=== PATIENT | male | born 1980 | race African-American/Black ===

== ENCOUNTER 2020-08-17 00:51 | Inpatient (IN) | payer OTHER ==
[~2020-08-17] VITALS: Ht 182.9 cm; Wt 121.8 kg
[2020-08-17] VITALS (9 sets, daily range): BP systolic 148–193; BP diastolic 106–130
[~2020-08-17 00:51] MED LIST: TRIAMCINOLONE A80 G2 TOP
[2020-08-17 01:31] LABS: ABSOLUTE NEUTROPHILS 2.8 thou/uL (1.4-8.2); BASOPHILS 2.1 % (0.0-2.0); EOSINOPHILS 2.1 % (0.0-3.0); HEMATOCRIT 45.9 % (42.0-52.0); HEMOGLOBIN 14.9 gm/dL (14.0-18.0); LYMPHOCYTES 26.5 % (24.0-44.0); MCH 28.7 pg (26.0-34.0); MCHC 32.3 g/dL (28.0-37.0); MCV 88.7 fL (80.0-100.0); MONOCYTES 12.8 % (1.0-8.0); PLATELET COUNT 164 thou/uL (150-400); POLYS 56.5 % (36.0-66.0); RBC 5.18 mil/uL (4.50-6.00); RDW 14.7 % (10.5-14.5); WBC 4.9 thou/uL (4.0-11.0)
[2020-08-17] MEDS ORDERED: NOHOMEMEDICATIONS (01:32)
[2020-08-17 01:33] LABS: CALCIUM 8.4 mg/dL (8.5-10.1); POTASSIUM 3.5 mmol/L (3.5-5.1)
[2020-08-17 01:33] LABS: URINE BILIRUBIN NEGATIVE (Negative); URINE BLOOD 1+ (Negative); URINE CLARITY CLEAR; URINE COLOR YELLOW; URINE GLUCOSE-RANDOM* NEGATIVE (Negative); URINE KETONES NEGATIVE (Negative); URINE LEUKOCYTES-REFLEX NEGATIVE (Negative); URINE NITRITE-REFLEX NEGATIVE (Negative); URINE PROTEIN (DIPSTICK) 1+ (Negative); URINE SPECIFIC GRAVITY 1.015 (1.005-1.035); URINE UROBILINOGEN 0.2 E.U./dl (0.2-1.0)
[2020-08-17 01:39] LABS: TOTAL BILIRUBIN 1.2 mg/dL (0.2-1.0); TOTAL PROTEIN 6.3 g/dL (6.4-8.2)
[2020-08-17 01:53] LABS: BACTERIA-REFLEX 1-9 Few /HPF (None Seen); CRYSTALS None Seen /LPF (None Seen); HYALINE CASTS 0-3 Few /LPF (None Seen); MUCUS None Seen strn/LPF (None Seen); SQUAMOUS 0-3 Few /LPF (0-3); TRANSITIONAL EPITHEL CELL 0-3 Few /LPF (None Seen); URINE RBC 1-2 Rare /HPF (NONE SEEN); URINE WBC-REFLEX 0-5 Rare /HPF (0-5)
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
[2020-08-17 07:44] LABS: APTT 25.6 Seconds (24.5-32.8); INR 1.14; PROTIME 12.4 Seconds (10.5-12.1)
[2020-08-17 07:49] LABS: CHOLESTEROL 113 mg/dL (<200); HDL CHOLESTEROL 37 mg/dL (>40); LDL CHOLESTEROL 63 mg/dL (<100); TC:HDL 3.1 Ratio (Not establshd); TRIGLYCERIDE 65 mg/dL (<150); VLDL 13 mg/dL (<40)
--- NOTE | 2020-08-17 09:17 | EKG ---
[place] [address] [facility] [place] [address] ELECTROCARDIOGRAM REPORT Name: RAMOS CASAS Room #: 212-P ADM IN M.R.#: [id number] Admission: 08/17/20 Attend Phys: Ron Blanc MD Discharge: Date of : 76 Report #: [id number] [facility] ED Test Date: 2020-08-17 Test Time: 02:47:33 Pat Name: RAMOS CASAS Department: Room: 212 Gender: M Hammerer Helper: zina solomon : 1980 Requested By: Wilton Abraham Order Number: [id number] MD: Sage Velez Measurements Intervals [place] Rate: 85 P: 46 AL: 216 QRS: 26 QRSD: 114 T: 33 QT: 414 QTc: 493 Interpretive Statements Sinus rhythm Prolonged AL interval Left atrial enlargement Abnormal R-wave progression, late transition Borderline prolonged QT interval No previous ECG available for comparison Electronically Signed On 08-17-2020 9:17:13 CDT by Sage Velez [email or web address] <ELECTRONICALLY SIGNED> By: Sage Velez MD, [facility] 08/17/20 0917 0247 0247 Sage Velez MD, FACC /EPI
--- NOTE | 2020-08-17 10:15 | 2DMMODE ---
[facility] [place] [address] 2 D/M-MODE ECHOCARDIOGRAM Name: RAMOS CASAS Room #: 212-P ADM IN M.R.#: [id number] Admission: 08/17/20 Attend Phys: Ron Blanc MD Discharge: Date of : 76 Report #: [id number] THIS REPORT FOR: cc: NO FAMILY PHYSICIAN or PCP NO FAMILY PHYSICIAN or PCP Carrillo Hooper MD [facility] ~ ADDENDUM APPROVED REPORT Study performed: 08/17/2020 08:58:15 EXAM: Comprehensive 2D, Doppler, and color-flow Echocardiogram Patient Location: Bedside Room #: 212 Status: routine BSA: 2.42 HR: 89 bpm BP: 173/120 mmHg Rhythm: Regular Other Information Study Quality: Good Indications Short of breath, elevated troponin, chest pain. 2D Dimensions RVDd: 52.66 mm IVSd: 14.87 (7-11mm) LVOT Diam: 23.34 (18-24mm) LVDd: 65.28 mm PWd: 14.83 (7-11mm) Ascending Ao: 39.34 (22-36mm) LVDs: 58.56 (25-40mm) Left Atrium: 71.12 (27-40mm) Aortic Root: 37.49 mm Volumes Left Atrial Volume (Systole) Single Plane 4CH: 261.05 mL Single Plane 2CH: 304.82 mL LA ESV Index: 130.00 mL/m2 Aortic Valve AoV Peak Kun.: 1.03 m/s AO Peak Gr.: 4.24 mmHg LVOT Max P.02 mmHg LVOT Max V: 0.71 m/s KAIDEN Vmax: 2.95 cm2 [facility] [email or web address] [address] 2 D/M-MODE ECHOCARDIOGRAM Name: RAMOS CASAS Room #: 212-P [facility] IN [facility]#: [id number] Admission: 08/17/20 Attend Phys: Ron Blanc MD Discharge: Date of : 76 Report #: [id number] Mitral Valve E/A Ratio: 3.7 MV Decel. Time: 150.27 ms MV E Max Kun.: 1.27 m/s MV A Kun.: 0.34 m/s MV PHT: 43.58 ms Pulmonary Valve PV Peak Kun.: 0.63 m/s PV Peak Gr.: 1.60 mmHg Pulmonary Vein P Vein S: 0.30 m/s P Vein D: 0.56 m/s P Vein S/D Ratio: 0.54 Tricuspid Valve TR Peak Kun.: 3.09 m/s RAP Estimate: 15.00 mmHg TR Peak Gr.: 38.21 mmHg PA Pressure: 53.00 mmHg Left Ventricle Left ventricle is moderately dilated. Moderate concentric left ventricular hypertrophy. Left ventricular systolic function is moderately decreased. LVEF is 40%. Right Ventricle Right ventricle is moderately dilated. Right ventricle is hypokinetic. Atria Left atrium is massively dilated. Right atrium is severely dilated. Aortic Valve The aortic valve is normal in structure. Trace aortic regurgitation. There is no aortic valvular stenosis. Mitral Valve The mitral valve is normal in structure. Severe mitral regurgitation. Tricuspid Valve The tricuspid valve is normal in structure. Mild tricuspid regurgitation. Estimated PAP is 50-55mmHg. [facility] [address] [place] [address] 2 D/M-MODE ECHOCARDIOGRAM Name: RAMOS CASAS Room #: [facility] IN ..#: [id number] Admission: 08/17/20 Attend Phys: Ron Blanc MD Discharge: Date of : 76 Report #: [id number] Pulmonic Valve The pulmonary valve is normal in structure. Mild pulmonic regurgitation. Great Vessels The aortic root is normal in size. The ascending aorta is mildly dilated (3.9cm). IVC is dilated and collapses <50% with inspiration. Pericardium There is no pericardial effusion. <Conclusion> Normal left ventricular size Moderate concentric hypertrophy Global hypokinesis ejection fraction of 40% Right ventricle moderately dilated/hypokinetic Severe biatrial enlargement Color-flow Doppler study was performed of the aortic/mitral/tricuspid/pulmonary valve Trace aortic valve insufficiency Severe/eccentri/central to posteriorly directed mitral valve insufficiency Moderate mitral annular calcification Mild tricuspid valve insufficiency Pulmonary systolic pressure estimated 55 mmHg No pericardial effusion IVC mildly dilated minimally responsive to respiration Aortic root size mildly dilated 3.9 cm <ELECTRONICALLY SIGNED> By: Carrillo Hooper MD, FACC 08/17/20 1015 1015 1015 Carrillo Hooper MD, FAC /INF
[2020-08-17 16:09] LABS: % SATURATION 19 % (20-39); IRON 59 ug/dL (65-175); TIBC 316 ug/dL (250-450)
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
--- NOTE | 2020-08-17 17:38 | NUR ---
ADV. DIR.CONSULT [id number] COMPLETED BY THIS TEACHER PUBLIC [employer]. DPOA PAPERWORK PLACED IN HIS CHART. HE WAS GIVEN ORIGINAL DOCUMENT AND 2 COPIES.
--- NOTE | 2020-08-17 17:56 | NUR ---
PT RESTING IN BED AT THIS TIME, VS STABLE, PT STATES HE FEELS HE CAN ALREADY BREATHE BETTER, PT PLAYING XBOX AT THIS TIME DENIES ANY PAIN, DISCOMFORT OR CONCERNS.
[2020-08-18 03:54] VITALS: BP 184/122
[2020-08-18 05:23] LABS: HEMATOCRIT 46.5 % (42.0-52.0); HEMOGLOBIN 15.2 gm/dL (14.0-18.0); MCH 29.1 pg (26.0-34.0); MCHC 32.7 g/dL (28.0-37.0); MCV 88.8 fL (80.0-100.0); RBC 5.23 mil/uL (4.50-6.00); RDW 14.9 % (10.5-14.5); WBC 4.3 thou/uL (4.0-11.0)
[2020-08-18 05:37] LABS: ALBUMIN 2.9 g/dL (3.4-5.0); CALCIUM 8.2 mg/dL (8.5-10.1); CREATININE 1.5 mg/dL (0.7-1.3); TOTAL BILIRUBIN 1.1 mg/dL (0.2-1.0); TOTAL PROTEIN 6.3 g/dL (6.4-8.2)
[2020-08-18 06:07] LABS: GLYCOHEMOGLOBIN (HGB A1C) 5.7 % (4.8-5.6)
--- NOTE | 2020-08-18 07:02 | NUR ---
PATIENTS CARES WERE ASSUMED AT SHIFT CHANGE. PATIENT WAS ASSESSED AND MEDS WERE PASSED. PATIENT DID SLEEP APPROX SEVEN HOURS. LAXIX WAS NOT GIVEN DUE TO HIS PROCEDURE. B/P MEDS ARE ON SCHEDULE FOR 0900 THAT CAN BE GIVEN SOONER. THIS WAS PASSED ON TO THE DAY SHIFT. ROUNDS DONE. SHIFT UNEVENTFULL
[2020-08-18 07:20] VITALS: BP 180/127
[2020-08-18 11:40] VITALS: BP 174/127
[2020-08-18 15:50] VITALS: BP 153/106
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
[2020-08-18 21:06] LABS: IgG 1075 mg/dL (603-1613)
[2020-08-18 21:11] VITALS: BP 139/90
--- NOTE | 2020-08-18 22:47 | NUR ---
PT AOX4.PT IN NO ACUTE DISTRESS.PT TO HAVE CARDIAC ARSH IN AM.REFUSED TO HAVE COVID TEST DONE STATING THAT HE DOES NOT FEEL COMFORTABLE AND HE HAD ALREADY TALKED TO SOMEBODY ABOUT IT.EDUCATED ON THE IMPORTANCE OF TEST A PREPROCEDURE PREPARATION,CONTINUED TO REFUSE STATING IF HE HAS TO HAVE DONE HE WANTS TO BE DISCHARGED.
[2020-08-19 02:06] LABS: HAV IgM AB (ANTI-HAV IgM) Negative (Negative); HEPATITIS B SURFACE AG Negative (Negative); HEPATITIS C VIRUS AB 0.1 (0.0-0.9)
[2020-08-19 04:00] VITALS: BP 151/111
[2020-08-19 04:01] LABS: CALCIUM 8.4 mg/dL (8.5-10.1); CREATININE 1.6 mg/dL (0.7-1.3); POTASSIUM 3.6 mmol/L (3.5-5.1)
--- NOTE | 2020-08-19 04:42 | NUR ---
PT BEEN RESTING IN NO ACUTE DISTRESS.A/OX4.VSS.BLOOD PRESSURE IMPROVING.CIWR SCORE 0.DENIES CHEST PAIN.NPO AFTER MIDNIGHT FOR CARDIAC ARSH PROCEDURE.PT DENIES PAIN OR ANY CONCERNS.ASSESSMENT COMPLETED DOCUMENTED.
[2020-08-19 07:25] VITALS: BP 152/109
[2020-08-19 08:45] LABS: ALBUMIN 3.1 g/dL (3.4-5.0); DIRECT BILIRUBIN 0.1 mg/dL (<0.1-0.2); TOTAL BILIRUBIN 0.7 mg/dL (0.2-1.0); TOTAL PROTEIN 6.7 g/dL (6.4-8.2)
[2020-08-19 09:02] LABS: BE(vivo) 2.4 mmol/L (-2 to +3); HCO3 26.2 mmol/L (22.0-26.0); PO2 66.4 mmHg (80.0-100.0); pH 7.456 (7.360-7.450); sO2 94.1 % (92.0-98.0)
[2020-08-19 09:05] LABS: BE(vivo) 2.5 mmol/L (-2 to +3); HCO3 27.1 mmol/L (22.0-26.0); PCO2 VENOUS 41.6 mmHg (41.0-51.0); PO2 VENOUS 41.2 mmHg (35.0-45.0)
[2020-08-19 10:07] LABS: ANA INTERPRETATION Negative (Negative)
[2020-08-19 11:07] LABS: CERULOPLASMIN 31.3 mg/dL (16.0-31.0)
[2020-08-19] MEDS ORDERED: AMLODIPINE BESY10 MG PO (11:26)
[2020-08-19] MEDS ORDERED: CARVEDILOL25 MG PO (11:26)
[2020-08-19] MEDS ORDERED: BAYER CHEWABLE81 MG PO (11:26)
[2020-08-19] MEDS ORDERED: HYDRALAZINE 2525 MG PO (11:26)
--- NOTE | 2020-08-19 11:43 | CATHLAB ---
[facility] [place] [address] INVASIVE PROCEDURE REPORT Name: RAMOS CASAS Room #: 212-P ADM IN M.R.#: [id number] Admission: 08/17/20 Attend Phys: Ron Blanc MD Discharge: Date of : 76 Report #: [id number] THIS REPORT FOR: cc: NO FAMILY PHYSICIAN or PCP NO FAMILY PHYSICIAN or PCP Hipolito Dominique MD ~ APPROVED REPORT Study performed: 08/19/2020 08:16:16 Patient Details Patient Status: In-Patient Room #: The patient is a 40 year-old male Event Personnel Hipolito Dominique Director And Professor, Bekah Rivera RN RN, Lydia Coleman RTR Monitor, Cheryl Chun RT(R)() Scrub Procedures Performed Right and Left Heart Cath w/or w/o Coronarie [id number] [facility] Art Access - R femoral artery* Abelardo Access - R femoral vein Hemostasis with Manual pressure 68251 Initial Mod Sed Same Phys/QHP Gr5y 239719 79819 Mod Sed Same Phys/QHP Ea [id number] Indication CHF Current Status: , Dyspnea, Cardiomyopathy, Valvular heart disease, Chest pain, The patient presented with chest pain/dyspnea, found to have hypertensive urgency, moderate cardiomyopathy with CHF, severe mitral regurgitation and minimal troponin elevation. Risk Factors Hypercholesterolemia, Hypertension, Tobacco History () Procedure Narrative The patient was brought urgently to the Cardiac Catheterization Laboratory and was prepped and draped in a sterile manner. The Right Groin^ was infiltrated with 1% Lidocaine subcutaneous anesthesia. A Right Heart Catheterization was performed with a 7 Fr. Cheswick-Edyta catheter and pressure were recorded. Cardiac outputs were obtained by the Dai method. A PINNACLE 5FR Sheath #[id number] sheath was inserted into the RFV^. Coronary angiography was performed using coronary diagnostic catheters. The right coronary system was accessed and visualized with a 5FR 3DRC #[id number] catheter. The left coronary system was accessed and visualized with a 5FR JL5 #[id number] catheter. The left [address] [address] INVASIVE PROCEDURE REPORT Name: RAMOS CASAS Room #: 212-P [facility] IN [facility].#: [id number] Admission: 08/17/20 Attend Phys: Ron Blanc MD Discharge: Date of : 76 Report #: [id number] ventricle was accessed and visualized with a 5FR 3DRC #[id number] catheter. Left ventricular/Aortic Valve gradient assessed via catheter pullback. Left ventriculogram was performed in 30 degree projection. Hemostasis was obtained with manual pressure following sheath removal without any complications. The patient tolerated the procedure well and there were no complications associated with the procedure. There was no hematoma. Intraoperative Conscious Sedation Sedation start time: 8:39 Case end Time: 9:32 Fentanyl 100 mcg Versed 2.0 mg Fluoro Time: 7.10 minutes Dose: DAP 05649.00 cGycm2 1778 mGy Contrast Type and Amount: Visipaque 90 ml Coronary Angiography The patient's coronary anatomy is right dominant. Diagnostic Cath Left Main The left main artery is a large-caliber vessel, appears angiographically normal. LAD The LAD is a moderate-sized caliber vessel, traverses the anterior wall and wraps around the apex. This vessel appears angiographically normal. Diagonal 1 This is a small to moderate-sized caliber vessel, patent with no flow-limiting lesions. Diagonal 2 This is a small to moderate-sized caliber vessel, patent with no flow-limiting lesions. Circumflex The left circumflex artery is a moderate-sized caliber vessel, appears angiographically normal. OM1 This is a moderate-sized caliber vessel, patent with no flow-limiting lesions. OM2 This is a moderate-sized caliber vessel, patent with no flow-limiting lesions. Right Coronary The RCA is a moderate-sized caliber vessel, appears angiographically normal. R PDA This is a moderate-sized caliber vessel, patent with no flow-limiting lesions. RPLV This is a moderate-sized caliber vessel, patent with no flow-limiting lesions. Left Ventriculography Left Ventriculography was not performed. Ejection Fraction was 40% based off patient's Echocardiogram. An LVEDP was measured and [address] [address] INVASIVE PROCEDURE REPORT Name: RAMOS CASAS Room #: 212-P [facility] IN M.R.#: [id number] Admission: 08/17/20 Attend Phys: Ron Blanc MD Discharge: Date of : 76 Report #: [id number] there is no gradient across the outflow tract. Hemodynamics The right atrial mean pressure is 4 mmHg. The right ventricular pressure is 43/0 mmHg. The pulmonary artery pressure is 46/19 mmHg with a mean of 30 mmHg. The mean pulmonary capillary wedge pressure is 9 mmHg. The aortic pressure is 144/101 mmHg with a mean of 118 mmHg. The left ventricular pressure is 137/5 mmHg with a mean of mmHg. The left ventricular end diastolic pressure is 17 mmHg. Pullback from the left ventricle to the aorta revealed no gradient across the aortic valve. PaO2 saturation is 78.10 %. Arterial saturation is 92.00 %. The cardiac output using the Dai method is 10.01 L/min. The cardiac index using the Dai method is 4.32 L/min/m2. Conclusion 1. Angiographically normal coronary arteries. 2. Nonischemic cardiomyopathy. 3. Right-sided hemodynamic pressures as recorded. 4. Severe mitral regurgitation. 5. Recommend guideline directed medical therapy and surgical evaluation. <ELECTRONICALLY SIGNED> By: Hipolito Dominique MD 08/19/20 1142 1142 114 Hipolito Dominique MD /INF
--- NOTE | 2020-08-19 12:56 | TEE ---
[facility] [place] [address] TRANSESOPHAGEAL ECHOCARDIOGRAM Name: RAMOS CASAS Room #: 212-P ADM IN M.R.#: [id number] Admission: 08/17/20 Attend Phys: Ron Blanc MD Discharge: Date of : 76 Report #: [id number] THIS REPORT FOR: cc: NO FAMILY PHYSICIAN or PCP NO FAMILY PHYSICIAN or PCP Carrillo Hooper MD [facility] ~ APPROVED REPORT Study performed: 08/19/2020 11:54:52 EXAM: Transesophageal Echocardiogram Patient Location: CVL Status: routine BSA: 2.31 HR: 93 bpm BP: 159/108 mmHg Rhythm: NSR Other Information Study Quality: Good Indications Severe MR. Procedure After obtaining informed consent, patient underwent transesophageal echo in the [employer]. Type of Sedation : Conscious Sedation Sedation was administered by Bri Parra RN. Sedation was achieved intravenously with: Versed (6) Fentanyl (75) Transesophageal probe was inserted and advanced into esophagus without difficulty by Carrillo Hooper MD. Echo enhancement indication: R/O Septal defect. Echo enhancement agent administered: Agitated Saline The JENNI was performed without complications. Throughout the procedure, the blood pressure, pulse oximetry, cardiac rhythm, and rate were monitored. The patient tolerated the procedure without adverse effects. Recovery from conscious sedation was uneventful and vital signs were stable. Left Ventricle Left ventricle is mildly dilated. Mild concentric left ventricular [address] [address] TRANSESOPHAGEAL ECHOCARDIOGRAM Name: RAMOS CASAS Room #: 212-P ADM IN M.R.#: [id number] Admission: 08/17/20 Attend Phys: Ron Blanc MD Discharge: Date of : 76 Report #: [id number] hypertrophy. Left ventricular systolic function is moderately decreased. LVEF is 40%. Right Ventricle Right ventricle is dilated. Right ventricle is mildly hypokinetic. Atria Severe enlargement No thrombus is visualized in the left atrial appendage. No shunting noted with contrast bubble injection. Moderate enlargement Aortic Valve The aortic valve is normal in structure. Trace aortic regurgitation. There is no aortic valvular stenosis. Mitral Valve The mitral valve is normal in structure. Severe mitral regurgitation. Tricuspid Valve The tricuspid valve is normal in structure. Trace tricuspid regurgitation. Pulmonic Valve The pulmonary valve is normal in structure. Great Vessels The aortic root is normal in size. Pericardium There is no pericardial effusion. <Conclusion> Consent was obtained After appropriate sedation esophageal probe was advanced without difficulty Left atrial appendage moderately dilated, no clot detected Mildly dilated left ventricle Mildmoderate concentric hypertrophy Ejection fraction 40-45% Right ventricle mildly dilated/hypokinetic Left atrium is severely dilated Right atrium moderately dilated Aortic valve trileaflet valve, trace aortic valve insufficiency [facility] [address] [place] [address] TRANSESOPHAGEAL ECHOCARDIOGRAM Name: RAMOS CASAS Room #: 212-P [facility] IN ..#: [id number] Admission: 08/17/20 Attend Phys: Ron Blanc MD Discharge: Date of : 76 Report #: [id number] Mitral valve mildly thickened No evidence of ruptured chordae Moderatesevere eccentric mitral valve insufficiency Normal tricuspid valve/trace insufficiency No pericardial effusion Normal aortic root size No calcification throughout the aorta No evidence of ASD/VSD by color flow/bubble study Patient tolerated procedure well <ELECTRONICALLY SIGNED> By: Carrillo Hooper MD, FACC 08/19/20 1255 1255 125 Carrillo Hooper MD, FACC /INF
--- NOTE | 2020-08-19 14:54 | NUR ---
ASSESSMENT CHARTED - MEDS PER JUN - GIVEN POST CATH AND JENNI THIS AFTERNOON. JORGE ALBERTO DIET AND FLUIDS POST PROCEDURE. GROIIN SITE STABLE POST CATH - PT AWAKE AND ALERT POST JENNI, BP HAS BEEN HIGH AT TIMES - STARTED ON HYDRALAZINE WITH LUNCH. NO CO'S OF PAIN OR NAUSEA. PATIENT WITH FALT AFFECT. SEEEN BY DR SOSA IN [facility]. NO CO'S AT THE PRESENT TIME.
[2020-08-19 15:12] VITALS: BP 156/112
--- NOTE | 2020-08-19 15:13 | NUR ---
Likely ks tomorrow. [facility] info provided along with three scripts vouchered per the [facility]. They are locked in the med room by the unit RN this afternoon and will need to be issued to the pt at ks.
[2020-08-19 15:30] VITALS: BP 153/97
[2020-08-19 21:02] VITALS: BP 121/82
[2020-08-19 23:34] VITALS: BP 148/88
[2020-08-20 03:30] LABS: HEMATOCRIT 50.3 % (42.0-52.0); HEMOGLOBIN 16.3 gm/dL (14.0-18.0); MCH 29.1 pg (26.0-34.0); MCHC 32.3 g/dL (28.0-37.0); MCV 90.2 fL (80.0-100.0); RBC 5.58 mil/uL (4.50-6.00); RDW 15.3 % (10.5-14.5); WBC 4.7 thou/uL (4.0-11.0)
[2020-08-20 03:43] LABS: ALBUMIN 2.9 g/dL (3.4-5.0); CALCIUM 8.5 mg/dL (8.5-10.1); CREATININE 1.6 mg/dL (0.7-1.3); POTASSIUM 3.8 mmol/L (3.5-5.1); TOTAL BILIRUBIN 0.5 mg/dL (0.2-1.0); TOTAL PROTEIN 6.6 g/dL (6.4-8.2)
[2020-08-20 04:15] VITALS: BP 153/108
--- NOTE | 2020-08-20 05:11 | NUR ---
ASSESSMENTS CHARTED, MEDS CHARTED GIVEN. PATIENT OFF BED REST BEFORE START OF SHIFT. WENT TO THE BEATER ROOM SUPERVISOR DURING DAY. ACCESS FOR CATH WAS RIGHT GROIN BANDAGE IS C/D/I. AREA IS SOFT. PATIENT IS UP AT JENNIFER IN ROOM, ON ROOM AIR. BLOOD PRESSURE WAS AGAIN HIGH AT 0400, HYDRALAZINE GIVEN. PLAN OF CARE IS TO CONTINUE TO REGULATE BLOOD PRESSURE, PATIENT MAY OR MAY NOT GO HOME TODAY. FALL PRECAUTIONS IN PLACE DURING SHIFT.
[2020-08-20 07:22] VITALS: BP 153/111
[2020-08-20] MEDS ORDERED: HYDRALAZINE 5050 MG PO (08:29)
[2020-08-20] MEDS ORDERED: PRENATAL PO (10:55)
[2020-08-20 11:09] VITALS: BP 156/112
--- NOTE | 2020-08-20 11:42 | NUR ---
ASSESSMENT CHARTED - MEDS PER MARY AZUL DIET AND FLUIDS. NO CO's OF PAIN OR NAUSEA. UP AD JENNIFER IN ROOM. 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 HOME THIS AM - INSTRUCTION GIVEN RE HOME MEDS/ CARE AND FOLLOW UP, STATED UNDERSTANDING OF INSTRUCTION GIVEN. PT HOME VIA PVT VEHICLE - DROVE SELF. NO CO'S AT TIME OF D/C.
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
== END 2020-08-20 11:35 | disposition home or self-care (01) | DRG 280 ==
LOC: ER 00:51 → EROBS 04:35 → 2N 04:53
PROVIDERS: Emergency Medicine; Internal Medicine; Internal Medicine Cardiovascular Disease; Nurse Practitioner; Nurse Practitioner Family; ADMIT Hospitalist; ATTEND Hospitalist
DX: I21.4 Non-ST elevation (NSTEMI) myocardial infarction (principal); I50.21 Acute systolic (congestive) heart failure; N17.0 Acute kidney failure with tubular necrosis; I13.0 Hypertensive heart and chronic kidney disease with heart failure and stage 1 through stage 4 chronic kidney disease, or unspecified chronic kidney disease; I16.1 Hypertensive emergency; N17.9 Acute kidney failure, unspecified; I42.6 Alcoholic cardiomyopathy; F17.210 Nicotine dependence, cigarettes, uncomplicated; R74.01 Elevation of levels of liver transaminase levels; F32.9 Major depressive disorder, single episode, unspecified; N18.9 Chronic kidney disease, unspecified; E87.6 Hypokalemia; I34.0 Nonrheumatic mitral (valve) insufficiency; K70.10 Alcoholic hepatitis without ascites; F43.10 Post-traumatic stress disorder, unspecified; F43.23 Adjustment disorder with mixed anxiety and depressed mood; Z71.6 Tobacco abuse counseling; Z71.41 Alcohol abuse counseling and surveillance of alcoholic; Z79.82 Long term (current) use of aspirin; Z79.899 Other long term (current) drug therapy; Z91.14 Patient's other noncompliance with medication regimen
CPT/HCPCS: 10081